=== PATIENT | female | born 1945 | race Caucasian/White ===

== ENCOUNTER 2016-12-19 12:28 | Inpatient (IN) ==
[2016-12-19 14:17] LABS: URINE SOURCE CLEAN CATCH
[2016-12-19 14:25] LABS: BILIRUBIN URINE NEGATIVE (NEGATIVE); BLOOD URINE SMALL (NEGATIVE); COLOR YELLOW; GLUCOSE URINE NEGATIVE (NEGATIVE); LEUKOCYTES URINE LARGE (NEGATIVE); NITRITE URINE POSITIVE (NEGATIVE); PROTEIN URINE 100 mg/dL (NEGATIVE); SP GRAVITY URINE 1.017; TURBIDITY URINE HAZY (CLEAR); URINE MICRO REVIEW NEEDED? YES; UROBILINOGEN URINE NORMAL (NORMAL)
[2016-12-19 14:26] LABS: MANUAL DIFF NEEDED? NO
[2016-12-19 14:30] LABS: BASO% 0.3 % (0.0-0.8); EOS# 0.07 X1000 (0.0-0.7); EOS% 0.4 % (0.0-10.0); HEMATOCRIT 45.3 % (37.0-47.0); IMM GRAN# 0.04 X1000 (0.0-0.04); IMM GRAN% 0.2 % (0.0-0.5); LYMPH# 2.08 X1000 (1.2-3.4); LYMPH% 12.9 % (20.5-51.1); MCH 32.1 PG (27-31); MCHC 33.1 g/dL (33-37); MCV 96.8 FL (81-99); MONO# 1.27 X1000 (0.11-0.59); MONO% 7.9 % (1.7-9.3); MPV 9.6 FL (7.4-10.4); NEUT% 78.3 % (42.2-75.2); PLT 361 X1000 (130-400); RBC 4.68 XMIL (4.2-5.4)
[2016-12-19 14:39] LABS: UR EPITHELIAL CELLS <10 /HPF (<10); URINE BACTERIA 4+ /HPF; URINE CULTURE NEEDED? YES; URINE RBC <10 /HPF (<10); URINE WBC TNTC /HPF (<10)
[2016-12-19 14:53] LABS: ALBUMIN 4.2 g/dL (3.5-5.0); CALCIUM 9.9 mg/dL (8.8-10.2); POTASSIUM 4.5 mmol/L (3.5-5.1); TOTAL BILIRUBIN 0.57 mg/dL (0.20-1.00); TOTAL PROTEIN 8.1 g/dL (6.3-8.3)
[2016-12-19] MEDS ORDERED: ROCEPHIN 1 GM in NS 50 ML IV ONE (15:33)
[2016-12-19] MEDS ORDERED: NS 500 ML IV ONE (15:34)
[2016-12-19] MEDS ORDERED: ZOFRAN IV ONE (15:35)
--- NOTE | 2016-12-19 16:42 | PROVIDER DOCUMENTATION ---
This chart was entered by Emilia Yang Scribe, acting as scribe for Americo Segura PA. HPI-Female /OB/Breast - General Chief Complaint: UTI Symptoms Stated Complaint: KIDNEY STONES,ABD PAIN Time Seen by Provider: 12/19/16 12:44 Source: reports: patient Allergies/Adverse Reactions: Patient Allergies Allergy/AdvReac Type Severity Reaction Status Date / Time adhesive AdvReac HIVES Verified 08/12/15 06:45 Home Medications: Home Medication List Medication Instructions Recorded Confirmed Last Taken Type Glimepiride [Amaryl] 2 mg PO BID CC 10/27/12 12/19/16 12/19/16 09:00 History Lisinopril [Zestril] 2.5 mg PO DAILY 10/27/12 12/19/16 12/19/16 09:00 History Metformin [Glucophage] 850 mg PO BID CC 10/27/12 12/19/16 12/19/16 09:00 History Amitriptyline [Elavil] 50 mg PO HS 12/30/12 12/19/16 12/18/16 21:00 History Meclizine HCl [Antivert] 25 mg PO PRN PRN 12/30/12 12/19/16 08/11/15 19:00 History 25 Levothyroxine [Synthroid] 50 microgm PO DAILY 08/06/15 12/19/16 12/18/16 09:00 History Duloxetine HCl [Duloxetine HCl] 30 mg PO DAILY 12/19/16 12/19/16 12/19/16 09:00 History Levofloxacin [Levaquin] 500 mg PO BID #20 tablet 12/19/16 Unknown Rx Promethazine [Phenergan] 25 mg PO Q6H PRN PRN #20 tablet 12/19/16 Unknown Rx Sulfamethoxazole/Trimethoprim 1 tab PO BID 12/19/16 12/19/16 12/19/16 09:00 History [Sulfamethoxazole-Tmp Ds Tablet] Zolpidem Tartrate [Zolpidem 5 mg PO HS 12/19/16 12/19/16 12/18/16 21:00 History Tartrate] - History of Present Illness-Female /OB Nature of Presenting Problem: 71 year-old female with history of diabetes and frequent UTI's presents to the ER with right sided flank pain, pain with urination, and urinary incontinence. She reports that her symptoms have been present for the past 1.5 weeks. She had an antibiotic and one other medication called in by, Dr. Owens. She reports that her symptoms have kept her somewhat bedridden since 12/16/16. She has had nausea, but denies vomiting, diarrhea, or any other symptoms at this time. Does patient report she is ?: No Location of complaint: reports: right flank Radiation: reports: none Quality of Pain: reports: aching, burning Severity in ED: reports: moderate Onset/Duration: reports: other (1.5 weeks.) Timing: reports: still present, getting worse Context/Activities at Onset: reports: none Vaginal Symptoms: reports: no symptoms Vaginal Bleeding Amount: None Urinary Symptoms: reports: incontinent Modifying Factors: improves with: urinating (worsens) Associated Symptoms: reports: nausea. denies: diarrhea, vomiting Similar Symptoms Previously?: Yes Recently seen or treated by another doctor?: Yes Review of Systems - Adult - REVIEW OF SYSTEMS - ADULT Constitutional: reports: no symptoms reported, see HPI Eyes: reports: no symptoms reported, see HPI Ears, Nose, Mouth & Throat: reports: no symptoms reported, see HPI Cardiovascular: reports: no symptoms reported, see HPI Respiratory: reports: no symptoms reported, see HPI Gastrointestinal: reports: see HPI, abdominal pain Genitourinary: reports: see HPI, dysuria, incontinence Musculoskeletal: reports: no symptoms reported, see HPI Integumentary: reports: no symptoms reported, see HPI Neurological: reports: no symptoms reported, see HPI Psychiatric: reports: no symptoms reported, see HPI Endocrine: reports: no symptoms reported, see HPI Hematologic/Lymphatic: reports: no symptoms reported, see HPI Allergic/Immunologic: reports: no symptoms reported, see HPI Past History - Adult - PAST MEDICAL HISTORY-ADULT Review of Records: reports: Old Records Reviewed, Nursing Assessment Review, Medications Reviewed, Social history reviewed & non-contributory. Cardiovascular: reports: HTN, hyperlipidemia Respiratory: reports: denies history Gastrointestinal: reports: denies history Obstetrical/Gynecological: reports: denies history Genitourinary: reports: chronic UTI's Musculoskeletal: reports: arthritis Neurological: reports: dementia, TIA Psychiatric: reports: denies history Endocrine/Immune: reports: Diabetes, thyroid disorder - PRIOR SURGERIES/PROCEDURES Surgical/Procedure History: reports: cholecystectomy, hysterectomy, other ( thyroid; breast biopsy) - PRIOR HOSPITALIZATIONS Prior Hospitalizations: reports: none - IMMUNIZATION STATUS Childhood Immunizations: See Nurse Assessment Flu Vaccine: See Nurse Assessment - FAMILY HISTORY Family History: reviewed, not pertinent - SOCIAL HISTORY Smoking: non-smoker Substance Use: none/never Alcohol Use Frequency: never Physical Exam-General - PHYSICAL EXAM-ADULT Initial Vital Signs Reviewed: Yes - CONSTITUTIONAL General Appearance: appears well, alert, no apparent distress - EYES Eyes: PERRL/EOMI, pink conjunctivae - HEAD, EARS, NOSE, MOUTH & THROAT HENMT: normocephalic/atraumatic, moist mucous membranes - NECK Neck: non-tender, full range of motion - RESPIRATORY Respiratory: chest non-tender, lungs clear - CARDIOVASCULAR Cardiovascular: regular rate, rhythm, no edema, no murmur - GASTROINTESTINAL (ABDOMEN) Abdominal Exam: normal bowel sounds, non tender, soft, other (Right flank tenderness to palpation.). negative: distended, guarding, rebound, tenderness - GENITOURINARY Rectal Exam: deferred - LYMPHATIC Lymphatic: no adenopathy - MUSCULOSKELETAL Back Exam: normal inspection, no CVA tenderness, no vertebral tenderness Extremity: normal range of motion, non-tender - SKIN Integumentary: normal color, warm/dry, warm. negative: abrasion(s), diaphoresis , tenderness - NEUROLOGIC Neurologic: hat steamer II-XII nml as tested, grossly normal, no motor/sensory deficits - PSYCHIATRIC Psych/Mental Status: normal mood/affect, normal thought content, normal thought process, oriented x 3 Progress - PLAN OF CARE/RESULTS Progress/Plan/Lab Results: Vital Signs - 8 hr 12/19/16 12:32 Temperature 98.4 F Pulse Rate 90 Respiratory Rate 18 Blood Pressure 137/75 O2 Sat by Pulse Oximetry 97 Laboratory Results - last 24 hr 12/19/16 12/19/16 12/19/16 14:00 14:15 14:15 WBC 16.15 H RBC 4.68 Hgb 15.0 Hct 45.3 MCV 96.8 MCH 32.1 H MCHC 33.1 RDW Std Deviation 12.9 Plt Count 361 MPV 9.6 Immature Gran % (Auto) 0.2 Neut % (Auto) 78.3 H Lymph % (Auto) 12.9 L [place] % (Auto) 7.9 Eos % (Auto) 0.4 Baso % (Auto) 0.3 Immature Gran # (Auto) 0.04 Neut # (Auto) 12.64 H Lymph # (Auto) 2.08 [place] # (Auto) 1.27 H Eos # (Auto) 0.07 Baso # (Auto) 0.05 Sodium 132 L Potassium 4.5 Chloride 93 L Carbon Dioxide 23 L Anion Gap 16 BUN 19 Creatinine 1.0 H Estimated GFR/1.73 m2 55 BUN/Creatinine Ratio 19 Glucose 156 H Calculated Osmolality 270 Calcium 9.9 Total Bilirubin 0.57 AST 15 ALT 11 Alkaline Phosphatase 105 H Total Protein 8.1 Albumin 4.2 Globulin 3.9 Albumin/Globulin Ratio 1.1 Amylase 58 Lipase 76 H Urine Source CLEAN CATCH Urine Color YELLOW Urine Turbidity HAZY Urine pH 6.0 Ur Specific [place] 1.017 Urine Protein 100 A Ur Glucose (Stick) NEGATIVE Ur Ketones (Stick) 10 A Urine Blood SMALL A Urine Nitrite POSITIVE A Urine Bilirubin NEGATIVE Urobilinogen Dipstick NORMAL Urine Leukocytes LARGE A Urine WBC (Auto) TNTC A Urine RBC (Auto) <10 U Epithel Cells (Auto) <10 Urine Bacteria (Auto) 4+ Urine Crystals Not Reportable Small Round Cells Not Reportable Urine Casts Not Reportable Urine Yeast-like Cells NONE SEEN Orders Category Date Time Status Saline Loc DIRECTED Care 12/19/16 13:09 Active NPO Diet 12/19/16 13:09 Active AMYLASE [CHEM] Stat Lab 12/19/16 14:15 Completed CBC WITH ELECTRONIC DIFF [HEME] Stat Lab 12/19/16 14:15 Completed COMPREHENSIVE METABOLIC PANEL [CHEM] Stat Lab 12/19/16 14:15 Completed LIPASE [CHEM] Stat Lab 12/19/16 14:15 Completed URINALYSIS W/POSS RFLX CULT-1 [URINALYSIS] Stat Lab 12/19/16 14:00 Completed URINE CULTURE [RM] Routine Lab 12/19/16 14:56 Received URINE MANUAL MICROSCOPIC [URINALYSIS] Stat Lab 12/19/16 14:00 Completed 0.9% Sodium Chloride Inj [Ns] 500 ml Med 12/19/16 15:34 Discontinued IV 999 mls/hr CefTRIAXONE [Rocephin] 1 gm Med 12/19/16 15:33 Discontinued 0.9% Sodium Chloride Inj [Ns] 50 ml IV NOW Ondansetron [Zofran] Med 12/19/16 15:35 Discontinued 4 mg IV NOW ONE Result Diagrams: 12/19/16 14:15 12/19/16 14:15 - REASSESSMENT Reassessment #1 Time Reassessed: 15:43 (Discussed all labs and plan of care c pt and her daughter who agreed to follow up with Dr. Owens. ) Reassessment #2 Time Reassessed: 16:40 (Dr. Owens rounded on pt and requested a change in plan of care. He will admit the pt for observation, IV abx, and IV fluids. ) - CONSULTS/PCP/HOSPITALIST Notification #1 *Consult/PCP/Hospitalist*: (PCP) Time Discussed: 15:42 (Reviewed plan of care and labs. Dr. Owens agreed c giving 1g Rocephin and also recommended adding Levaquin to the Bactrim he had prescribed. Pt will discharge and follow up with Dr. Owens next week. ) Departure - Departure Date of Disposition Decision: 12/19/16 Time of Disposition Decision: 15:44 DIAGNOSIS: UTI (urinary tract infection), Pyelonephritis Disposition: ADMITTED INPATIENT 09 Certified Medical Emergency: Emergent Condition: Good Additional Freetext Instructions: ED Follow Up Instructions: You have been treated by a care provider in the Emergency Department. These instructions are being provided to you so you can have an understanding of how to care for yourself upon discharge. Upon discharge from the Emergency Department, you are responsible for making arrangements for follow-up care by a physician of your choice. Take all prescribed medications as directed. Return to the Emergency Department immediately for any new or worsening symptoms. You may call the Physician Referral phone number at [phone] to obtain a list of Physicians who are taking new patients. Prescriptions: Levofloxacin [Levaquin] 500 mg PO BID #20 tablet Promethazine [Phenergan] 25 mg PO Q6H PRN PRN #20 tablet PRN Reason: Nausea Referrals and Follow-Ups: Nanda Owens MD [Primary Care Provider] - Discharge Education: Smoking, You Can Quit, [id number] - Critical Care Note This patient required my direct & personal management of CC.: No Attestation - Physician/ JORGE Attestation Patient care was provided by Advanced Practice Provider:: Yes Advanced Practice Provider:: Americo Segura Advanced Practice Provider documentation review:: The Mid-level provider documentation, treatment plan and medical decision making was reviewed by the physician who agrees with all treatment and medical decision making by the MLP. The physician spent face to face time with patient:: Yes Advanced Practice Provider documentation review:: Supervising physician onsite and consulted in the evaluation and care of this patient. The physician did have a face to face encounter with the patient. This chart was documented by the indicated scribe, (Emilia Yang Scribe) and accurately reflects the services I performed and decisions made by me, Americo Segura PA, as attested by the provider's signature.
[2016-12-19] MEDS ORDERED: TYLENOL PO PRN (18:12)
[2016-12-19] MEDS ORDERED: DILAUDID IV PRN (18:12)
[2016-12-19] MEDS ORDERED: ANTIVERT PO PRN (18:12)
[2016-12-19] MEDS ORDERED: SODIUM CHLORIDE 0.9% INJ PRN (18:12)
[2016-12-19] MEDS: AMARYL PO SCH (18:57)
[2016-12-19] MEDS: NS 1,000 ML IV SCH (18:57)
[2016-12-19] MEDS: LEVAQUIN 500 MG/D5W 500 MG/100 ML IVPB IV SCH (18:57)
[2016-12-19] MEDS: GLUCOPHAGE PO SCH (19:01)
--- NOTE | 2016-12-19 19:11 | HISTORY AND PHYSICAL ---
Mrs. Marlin Cruz is a 71-year-old lady with a history of essential hypertension, post- procedural hypothyroidism, type 2 oju-uytykhm-qoayeynbo diabetes mellitus, and chronic constipation, who is well known to me. She presents to the ER with a 2 day course of dysuria, increased urinary frequency, low-grade fever, chills, nausea, dry heaves, and severe right flank pain. In the ER she was noted to have a leukocytosis of 16,000 and the urinalysis was positive for blood leukocyte esterase and nitrates. I had recently treated her for urinary tract infection with Bactrim as an outpatient. PAST MEDICAL HISTORY: As above. PAST SURGICAL HISTORY: Right total surgery, partial thyroidectomy, right breast biopsy, arthroscopy of the right knee, appendectomy, and cholecystectomy. ALLERGIES: No known drug allergies. FAMILY HISTORY: Her father had known ischemic heart disease, status post myocardial infarction, diabetes mellitus, and colon cancer. MEDICATIONS: Ambien 5 mg at bedtime p.r.n. insomnia, Victoza 18 mg per 3 meals, 0.6 mg subcutaneously daily, Cymbalta 30 mg daily, amitriptyline 50 mg at bedtime, Amitiza 8 mg b.i.d., glimepiride 2 mg b.i.d., metformin 500 mg b.i.d., levothyroxine 75 mcg daily, lisinopril 2.5 mg daily. SOCIAL HISTORY: She is a former smoker. She does not consume alcoholic beverages. REVIEW OF SYSTEMS: She denies any recent weight gain or weight loss.HEENT: She wears glasses. Cardiovascular: No chest pain, palpitations, or anginal equivalents. Pulmonary: No shortness of breath, paroxysmal nocturnal dyspnea, or orthopnea. Gastrointestinal: No reflux, dysphagia, melena, hematochezia, change in bowel habits, or rectal bleeding. Endocrine: No polyuria, no polydipsia. No cold or heat intolerance. Skin: No easy bruisability. Genitourinary: She has dysuria, increased urinary frequency, and low back pain. Neurologic: No migraines or seizures. Psychiatric: History of depression. PHYSICAL EXAMINATION: GENERAL: This is an acutely ill-appearing, 71-year-old lady in no apparent distress. VITAL SIGNS: Temperature 98.4 degrees, pulse 90, respirations 18, blood pressure 137/75. HEENT: Fundi with arteriolar wall thickening. Pupils equal, round, reactive to light. Extraocular eye movements intact. TMs without bullae. NECK: Supple. No masses, jugular venous distention or bruits. CARDIOVASCULAR: Regular rate and rhythm with a 2/6 systolic ejection murmur at the left sternal margin. LUNGS: Clear. ABDOMEN: Soft, nontender, with active bowel sounds. No hepatosplenomegaly. No abdominal bruits. There is some tenderness over the bladder. BACK: There is significant right costovertebral angle tenderness. EXTREMITIES: Without edema. BREASTS/CRIMINAL COURT JUDGE/RECTAL: Deferred. NEUROLOGICAL: Decreased light touch in the distal extremities bilaterally. LABORATORY DATA: A CBC demonstrated a white count of 16.1, hemoglobin 15, hematocrit 45, platelet count 361,000 with a left shift. Electrolytes demonstrate the following: Sodium 132 potassium 4.5, chloride 93, CO2 23, BUN 19, creatinine 1.0, and glucose 156. Urinalysis was positive for blood, nitrates, and too numerous to count WBCs. ASSESSMENT AND PLAN: 1. Hypertension. Her blood pressure is stable. I will continue lisinopril 2.5 mg daily. 2. Type 2 gqm-xjejgwd-mishqbpsm diabetes mellitus complicated by polyneuropathy. I will place her on an 1800 calorie ADA diet, pattern sugars, Humulin R sliding scale, and her regular home medications including Amaryl, metformin, and Victoza. 3. Acute pyelonephritis. Given the volume depletion, low-grade fever, dysuria, and significant low back pain, I believe that admission to the hospital is reasonable. I am going to begin normal saline at 100 mL/hour. I will begin broad-spectrum antibiotics including Levaquin 500 mg IV daily and tobramycin 100 mg IV x1 dose. I will check an ultrasound of the kidneys in the morning. 4. Post-procedural hypothyroidism. We will continue levothyroxine 75 mcg daily. Given her per clinical presentation and comorbid conditions, I believe that admission to the hospital is both reasonable and necessary. She is having persistent low back pain, nausea, dry heaves, poor p.o. intake, and is mildly dehydrated. I anticipate that she will be in the hospital for at least 2 midnights and I will; therefore, place her in inpatient status. I will begin Lovenox 40 mg subcutaneously daily and intermittent compression hose for deep venous thrombosis prophylaxis. cc: Samantha Owens MD
[2016-12-19] MEDS: DILAUDID IV PRN (19:14)
[2016-12-19] MEDS ORDERED: TOBRAMYCIN 100 MG in NS 100 ML IV ONE (20:00)
[2016-12-19] MEDS: AMBIEN PO SCH (21:25)
[2016-12-19] MEDS: LOVENOX SUBQ SCH (21:26)
[2016-12-19] MEDS: ELAVIL PO SCH (21:26)
[2016-12-19] MEDS: HUMULIN R SUBQ SCH (21:27)
[2016-12-20] MEDS: NS 1,000 ML IV SCH ×2 (05:25→15:34)
[2016-12-20] MEDS: HUMULIN R SUBQ SCH ×4 (06:23→20:38)
[2016-12-20] MEDS: SYNTHROID PO SCH (06:23)
[2016-12-20] MEDS: GLUCOPHAGE PO SCH ×3 (08:05→18:06)
[2016-12-20] MEDS: AMARYL PO SCH ×3 (08:05→18:06)
[2016-12-20] MEDS: PRINIVIL PO SCH (08:05)
[2016-12-20] MEDS: CYMBALTA PO SCH (08:06)
[2016-12-20] MEDS ORDERED: INSULIN PEN NEEDLES ONE (08:42)
--- NOTE | 2016-12-20 08:43 | PROGRESS NOTE ---
DATE: 12/20/2016 HISTORY: Ms. Cruz was admitted to [facility] with acute pyelonephritis. She continues with persistent right flank pain, dysuria, and increased urinary frequency. Urine cultures are growing out gram-negative rods. Blood cultures are negative to this point in time. She does have a history of type 2 hat-wnajlip-qrfkvtmwb diabetes mellitus complicated by polyneuropathy. Her blood sugars are fluctuating. Blood sugars are ranging from 132-198. Blood pressure is well controlled. Systolic blood pressures have ranged from 126-132, whereas her diastolic blood pressures have ranged from 60-64. She denies any chest pain, palpitations, or anginal equivalents. PHYSICAL EXAMINATION: Vital Signs: Temperature 98.4 degrees, pulse 73, respirations 17, blood pressure 132/64. CV: Regular rate and rhythm with a 2/6 systolic ejection murmur at the left sternal margin. Lungs: Clear. Abdomen: Soft, nontender, with active bowel sounds. Back: There is right CVA tenderness. ASSESSMENT AND PLAN: 1. Acute pyelonephritis. I will continue normal saline and broad-spectrum antibiotics including Levaquin and tobramycin, pending urine and blood cultures. I will check an ultrasound of the kidneys today to make sure that there is no abscess. 2. Type 2 qdc-apqysce-dkiqbfjan diabetes mellitus complicated by polyneuropathy. Blood sugars are too high. We will continue an 1800 calorie, [place] [employer] diet, pattern sugars, Humulin R sliding scale, and I will resume Victoza 1.2 mg subcutaneously daily. She has been out of Victoza for several weeks. 3. Hypertension. Her blood pressure is stable. I will continue lisinopril 2.5 mg daily. cc: Samantha Owens MD
[2016-12-20] MEDS ORDERED: VICTOZA SUBQ SCH (09:00)
[2016-12-20] MEDS: DILAUDID IV PRN ×3 (10:02→21:46)
--- NOTE | 2016-12-20 10:42 | Diag Imaging Result Doc PS360 ---
US RENAL 2 (RETROPER) COMPLETE - 12/20/2016 INDICATION: recurrent uti"s TECHNIQUE: COMPARISON: CT from 12/30/2012 FINDINGS: There is a tiny stable complicated cyst at the upper pole of the left kidney measuring 1 cm. Otherwise the kidneys are normal. No mass or hydronephrosis. Urinary bladder is normal. Renal sizes are normal. The right kidney measures 11.4 x 5.5 x 4.7 cm. Cortex measures 14 mm. The left kidney measures 10.9 x 5.2 x 5.6 cm. Cortex measures 12 mm. IMPRESSION: Negative exam. Electronically signed by Jas Pierre 12/20/2016 10:40 AM
[2016-12-20] MEDS: PHENERGAN IV PRN ×2 (12:14→18:12)
[2016-12-20] MEDS: LEVAQUIN 500 MG/D5W 500 MG/100 ML IVPB IV SCH (18:07)
[2016-12-20] MEDS: LOVENOX SUBQ SCH (20:57)
[2016-12-20] MEDS: ELAVIL PO SCH (20:57)
[2016-12-20] MEDS ORDERED: ZOFRAN IV PRN (21:19)
[2016-12-20] MEDS ORDERED: D50W SYRINGE IV ONE (21:20)
[2016-12-20] MEDS ORDERED: D5 NS 1,000 ML IV SCH (21:21)
[2016-12-20] MEDS: AMBIEN PO SCH (21:32)
[2016-12-21] MEDS ORDERED: D50W SYRINGE IV ONE (05:17)
[2016-12-21] MEDS: D10W 1,000 ML IV SCH ×2 (05:36→18:33)
[2016-12-21] MEDS: HUMULIN R SUBQ SCH ×4 (06:55→20:50)
[2016-12-21] MEDS: SYNTHROID PO SCH (06:58)
[2016-12-21] MEDS ORDERED: DULCOLAX PR PRN (10:33)
[2016-12-21] MEDS: PRINIVIL PO SCH (11:22)
[2016-12-21] MEDS: CYMBALTA PO SCH (11:22)
[2016-12-21] MEDS: DILAUDID IV PRN (11:27)
[2016-12-21 11:45] LABS: HEMATOCRIT 38.5 % (37.0-47.0); HEMOGLOBIN 12.6 g/dL (12.0-16.0); MCH 33.2 PG (27-31); MCHC 32.7 g/dL (33-37); MCV 101.6 FL (81-99); MPV 10.6 FL (7.4-10.4); RBC 3.79 XMIL (4.2-5.4)
[2016-12-21 12:09] LABS: AGAP 12; BUN 10 mg/dL (8-22); CALCIUM 9.4 mg/dL (8.8-10.2); CHLORIDE 97 mmol/L (98-107); COSMO 268; POTASSIUM 4.4 mmol/L (3.5-5.1); SODIUM 136 mmol/L (136-145); TCO2 27 mmol/L (25-35)
--- NOTE | 2016-12-21 13:52 | PROGRESS NOTE ---
DATE: 12/21/2016 SUBJECTIVE: Mrs. Cruz was admitted to [facility] with acute pyelonephritis. Her right flank pain has improved greatly. She is not having any dysuria or increased urinary frequency. Urine cultures have grown out E. coli. Blood cultures are still pending. During the night, she had persistent episodes of hypoglycemia. She never had any mental status changes. We stopped all of her diabetic medicines including metformin and Victoza, and started D10. Her blood sugars were trending up. This morning, her sugars were 136. She denies any chest pain. She was eating a good breakfast this morning. Temperature 98.2 degrees, pulse 64, respirations 20, BP 107/47. CV: Regular rate and rhythm with a 2/6 systolic ejection murmur at the left sternal margin. Lungs clear. Abdomen soft, nontender, with active bowel sounds. Back: No CVA tenderness. ASSESSMENT AND PLAN: 1. Acute pyelonephritis. We will continue IV Levaquin pending urine cultures and blood cultures. I suspect we will need to treat her with a prolonged course of antibiotics as an outpatient. 2. Type 2 vai-rtfjcol-fujydykqy diabetes mellitus complicated by polyneuropathy. We will continue TPN hold her medications and monitor her blood sugar. I will check a random glucose and insulin level to make sure there is no suggestion of insulinoma. cc: Samantha Owens MD
[2016-12-21] MEDS: LEVAQUIN 500 MG/D5W 500 MG/100 ML IVPB IV SCH (18:33)
[2016-12-21] MEDS: LOVENOX SUBQ SCH (20:50)
[2016-12-21] MEDS: AMBIEN PO SCH (20:50)
[2016-12-21] MEDS: ELAVIL PO SCH (20:50)
[2016-12-22] MEDS: SYNTHROID PO SCH (06:36)
[2016-12-22] MEDS ORDERED: GLUCOPHAGE PO SCH (08:30)
[2016-12-22] MEDS ORDERED: NORCO-5 PO PRN (08:30)
[2016-12-22 08:39] VITALS: BP 123/62
[2016-12-22] MEDS: CYMBALTA PO SCH (08:51)
[2016-12-22] MEDS: PRINIVIL PO SCH (08:52)
[2016-12-22] MEDS: D10W 1,000 ML IV SCH (08:52)
--- NOTE | 2016-12-22 09:13 | PROGRESS NOTE ---
DATE: 12/22/2016 SUBJECTIVE: Mrs. Cruz was admitted to [facility] with acute pyelonephritis. Urine cultures have grown out E. coli. Blood cultures are negative. She still has some mild intermittent right flank pain and urge to urinate, but denies any dysuria, nausea or vomiting. Her blood sugars are trending upward. Blood sugars are ranging from 144 to 214. OBJECTIVE: Vital Signs: Temperature 98.4, pulse 70, respirations 17, BP 107/91. CV: Regular rate and rhythm. Lungs: Clear. Abdomen: Soft, nontender, with active bowel sounds. Back: Minimal right CVA tenderness. ASSESSMENT AND PLAN: 1. Pyelonephritis. We will Hep-Lock fluids and continue IV Levaquin. We will increase activity at discharge. We will treat her with an additional 2 week course of Levaquin. 2. Type 2 noninsulin-dependent diabetes mellitus. We will resume metformin 500 mg b.i.d. and continue pattern sugars and a Humulin R sliding scale. cc: Samantha Owens MD
[2016-12-22] MEDS ORDERED: ZOFRAN PO PRN (12:10)
[2016-12-22] MEDS: HUMULIN R SUBQ SCH ×2 (13:44→17:59)
[2016-12-22] MEDS ORDERED: LEVAQUIN PO SCH (18:00)
--- NOTE | 2016-12-24 19:16 | DISCHARGE SUMMARY ---
ADMISSION DATE: 12/19/2016 DISCHARGE DATE: 12/22/2016 DISCHARGE DIAGNOSES: 1. Acute pyelonephritis (urine cultures grew out Escherichia coli). 2. Volume depletion secondary to nausea and vomiting. 3. Essential hypertension. 4. Postprocedural hypothyroidism. 5. Type 2 noninsulin dependent diabetes mellitus complicated by polyneuropathy. DISCHARGE INSTRUCTIONS: 1. Return to clinic in 1 week to see me, Dr. Woo Owens, in anticipation of a transition of care visit. 2. Activity as tolerated. 3. 1800 calorie ADA diet. MEDICATIONS: 1. [place] 5 one q.6 hours p.r.n. pain. 2. Levaquin 500 mg daily for 2 weeks. 3. Zofran 4 mg q.6 hours p.r.n. nausea and vomiting. 4. Lisinopril 2.5 mg daily. 5. Metformin 850 mg b.i.d. 6. Elavil 50 mg q.h.s. 7. Meclizine 25 mg q.6 hours p.r.n. dizziness. 8. Duloxetine 30 mg daily. DISCHARGE PHYSICAL EXAMINATION: General: This is a well-developed, well-nourished, 71-year-old lady in no apparent distress. Vital signs: She is afebrile. Vital signs are stable. CV: Regular rate and rhythm. Lungs: Clear. Abdomen: Soft and nontender with active bowel sounds. Back: Minimal right CVA tenderness. HOSPITAL COURSE: The patient was admitted to [facility] with acute pyelonephritis. She presented with right flank pain, dysuria, increased urinary frequency, low-grade fever, chills, nausea and vomiting. We aggressively rehydrated her with normal saline and began broad- spectrum antibiotics including Levaquin and tobramycin pending cultures. Urine cultures grew out E. coli. Blood cultures x2 demonstrated no growth. She responded to aggressive therapy with resolution of the low back pain, dysuria, and increased urinary frequency. An ultrasound of the kidneys demonstrated no evidence of hydronephrosis or abscess. She will complete a 2-week course of oral Levaquin as an outpatient. She does have a history of hypertension. Her blood pressure remained well controlled on lisinopril 2.5 mg daily. She denied any chest pain, palpitations or anginal equivalents. She does have a history of type 2 noninsulin dependent diabetes mellitus complicated by polyneuropathy. Her sugars were fluctuating and we added Victoza. For unknown reasons, her blood sugars plummeted and she had persistent hypoglycemia. We stopped the Victoza as well as the Amaryl. We gave her D10. Her sugars were in the range of 160 to 220 at the time of discharge. We resumed metformin 850 mg b.i.d. I asked her to check her sugars twice daily at home and we will make further adjustments in her medicines as indicated upon followup in my office in 1 week. Having reached maximum hospital benefit, the patient was discharged in stable condition. cc: Samantha Owens MD
== END 2016-12-22 19:04 | disposition home or self-care (01) ==
LOC: ED 12:28 → 3N 17:46
PROVIDERS: ADMIT Internal Medicine; ATTEND Internal Medicine